=== PATIENT | male | born 1990 | race Caucasian/White ===

== ENCOUNTER → 2018-08-06 | Outpatient (CLI) | payer OTHER ==
[2016-06-28 23:19] VITALS: BP 98/52
[~2018-08-06] MED LIST: BENZ1TAB5 PO; BENZ2AMP4 PO; CLOB20TA PO; DEXT1CAP PO; DIVA500T4 PO; IMIP50TA PO; NALT50TA15 PO; PALI9TAB PO; PRAM0.5T5 PO; PROP20TA PO; VENL150C PO; VENL37.5 PO; VERA240C2 PO; ZIPR80CA2 PO
--- NOTE | 2018-08-06 15:48 | KCIC ---
Indications: Bilateral hand and wrist pain. Bruising of left hand. Previous surgery of the right hand. Three-view left hand study: No acute fracture or dislocation or osteolytic process is seen. 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 No erosive arthropathy is evident. There is a mild deformity of the DIP joint of the fifth digit. 3 view left wrist study: There is mild degenerative spurring of the first carpal metacarpal joint. No erosive arthropathy is seen. No scaphoid fracture is evident. No acute fracture or dislocation or lytic process is seen. Alignment is normal. Negative ulnar variance is seen. 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 This is a developmental variant. 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 Three-view right hand study: No acute fracture or dislocation or osteolytic process is seen. 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 Mild deformity of the fifth DIP joint is seen. No erosive arthropathy is evident. 3 view right wrist study: No acute fracture or dislocation or osteolytic process is evident. No scaphoid fracture is seen. No significant arthritic change is evident and no erosive arthropathy is seen. Negative ulnar variance is seen. 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 This is a developmental variant. 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 Electronically signed by: Isra Lema MD (08/06/2018 3:44 PM) [id number]
== END | disposition home or self-care (01) ==
LOC: KCIC 14:47
PROVIDERS: ATTEND Physician Assistant Medical
DX: M19.032 Primary osteoarthritis, left wrist (principal); M19.031 Primary osteoarthritis, right wrist; M19.042 Primary osteoarthritis, left hand; M19.041 Primary osteoarthritis, right hand
CPT/HCPCS: 73110; 73130

== ENCOUNTER → 2021-12-11 | Outpatient (CLI) | payer OTHER ==
[2016-06-28 23:19] VITALS: BP 98/52
[~2021-12-11] MED LIST changes: -VENL150C PO; +VENL150C3 PO
--- NOTE | 2021-12-11 12:40 | KCIC ---
Exam: XR FOREARM_LEFT 2 VIEWS, XR LT WRIST 3VIEWS History: Pain in left wrist and forearm. Comparison: None. Findings: Osseous mineralization is normal. No acute fracture or dislocaton. Approximately 3 mm ulnar minus serafin iance. Soft tissue swelling over the dorsal mid forearm. Impression: 1. No acute osseous abnormality in the right wrist and forearm. 2. Soft tissue swelling over the dorsal mid forearm. 3. Ulnar minus variance at the wrist. Electronically signed by: Demond Arnold MD (12/11/2021 12:37 PM) [id number]
== END ==
LOC: KCIC 11:44
PROVIDERS: ATTEND Physician Assistant Medical
DX: M79.89 Other specified soft tissue disorders (principal); M25.832 Other specified joint disorders, left wrist
CPT/HCPCS: 73090; 73110